=== PATIENT | male | born 1990 | race African-American/Black ===

== ENCOUNTER 2024-02-19 21:59 | Emergency (ER) | payer OTHER ==
[~2024-02-19] VITALS: Ht 165.1 cm; Wt 67.1 kg
[2024-02-19 22:43] VITALS: TEMP 98.1
[2024-02-19] MEDS ORDERED: CEFTRIAXONE 500 MG VIAL ONE (22:59)
[2024-02-19] MEDS ORDERED: LIDOCAINE /MPF 1% VIAL 5 ML VIAL ONE (23:00)
[2024-02-19] MEDS ORDERED: AZITHROMYCIN 250 MG TABLET ONE (23:00)
[2024-02-19] MEDS ORDERED: AZITHROMYCIN 250 MG TABLET PO ONE (23:00)
[2024-02-19] MEDS: AZITHROMYCIN 250 MG TABLET PO ONE (23:16)
[2024-02-19] MEDS: CEFTRIAXONE 1 G VIAL IM ONE (23:16)
[2024-02-19 23:18] LABS: APPEARANCE,URINE CLEAR (CLEAR); BILIRUBIN,URINE NEGATIVE (NEGATIVE); BLOOD, URINE NEGATIVE Ery/uL (NEGATIVE); COLOR,URINE YELLOW (YELLOW); KETONES,URINE NEGATIVE (NEGATIVE); LEUKOCYTE ESTERASE ,URINE 1+ (NEGATIVE); NITRITE, URINE NEGATIVE (NEGATIVE); PH,URINE 6.5 (5.0-8.0); PROTEIN,URINE NEGATIVE (NEGATIVE); UGLUCOSE NEGATIVE (NEGATIVE); UROBILINOGEN,URINE 0.2 EU/dL (0.2)
[2024-02-19 23:23] LABS: ADD URINE CULTURE YES; BACTERIA,URINE Rare /HPF (None Seen); RBC,URINE 0-2 /HPF (0-2); SQUAMOUS EPITHELIAL CELL,UR Few /HPF (None Seen)
[2024-02-19 23:41] VITALS: BP 128/71; O2SAT 99
== END 2024-02-19 23:41 | disposition home or self-care (01) ==
LOC: ER 22:03
DX: R35.0 Frequency of micturition (principal); R39.15 Urgency of urination
CPT/HCPCS: 99283; 96372; 87086; 81001; 87491; 87591; J0696; J3490